=== PATIENT | female | born 1950 | race Caucasian/White ===

== ENCOUNTER 2018-02-27 17:48 | Emergency (ER) | payer MEDICARE, BC ==
[2011-01-12 06:33] VITALS: BMI 32.9
[2018-04-08 09:45] VITALS: BMI 35.2
== END 2018-02-27 18:46 | disposition home or self-care (01) ==
LOC: D.ER 17:48
DX: M62.838 Other muscle spasm (principal)

== ENCOUNTER 2018-03-13 11:12 | Inpatient (IN) | payer MEDICARE, BC ==
[~2018-03-13] VITALS: Ht 170.2 cm; Wt 100.6 kg
--- NOTE | ~2018-03-13 | EC ---
PATIENT:JACOB BARR DATE OF SERVICE: 03/13/18 SEX: F MEDICAL RECORD: [id number] DATE OF : 52 LOCATION:D.M2 D.212 AGE OF PATIENT: 67 ADMISSION DATE: 03/13/18 REFERRING PHYSICIAN: INTERPRETING PHYSICIAN: REAL SWAIN MD ECHOCARDIOGRAM REPORT ECHO CHARGES 4 ECHO COMPLETE Date: 03/13 CLINICAL DIAGNOSIS: AFIB ECHOCARDIOGRAPHIC MEASUREMENTS (adult normal given) AC root (d.<3.7cm) 3.9 cm LV Septum d (<1.2 cm> 1.2 cm Valve Excursion 2.1 cm LV Septum (systole) 1.3 cm Left Atria (s.<4.0cm> cm LVPW d(<1.2cm) 1.8 cm RV (d.<2.3cm) 3.9 cm LVPW (sytole) 1.9 cm LV diastole(<5.6CM) 5.9 cm MV E-F(>70mm/sec) cm LV systole 4.6 cm LVOT Diameter 1.6 cm MV exc.(>10mm) 1.5 cm Est.ejection fraction (50-75%) % DOPPLER: LVIT cm/sec A cm/sec E 109 cm/sec LA cm/sec RVSP 35 mmHg LVOT 88 cm/sec AOP1/2T m/s Asc. Ao 165 cm/sec RVOT 103 cm/sec RA cm/sec PA 147 cm/sec AV Gradient Peak 10.75mmHg AV Mean 5.50 mmHg AV Area cm MV Gradient Peak 4.97 mmHg MV Mean 1.44 mmHg MV Area cm COMMENTS: Neon Glass Blower: Krystina MAYERS Steerer: Joel Swain TAPE# PACS Pericardial Effusion N DATE OF SERVICE: 03/13/2018 FINDINGS: 1. Left ventricular chamber size is within normal limits. Left ventricular systolic function is normal. Overall ejection fraction estimated at 55%. 2. Left atrium is enlarged at 5.3 cm. Right atrium and right ventricular chamber sizes are as well moderately dilated. 3. Valvular structures have normal structure and motion. 4. Doppler interrogation reveals mild mitral regurgitation, mild tricuspid regurgitation. No other valvular insufficiency or stenosis. Pulmonary systolic ECHOCARDIOGRAM REPORT [id number] JACOB BARR pressure is estimated 35 mmHg. 5. No evidence of pericardial effusion or left ventricular thrombus. TRANSINT:[id number] Voice Confirmation ID: [id number] DOCUMENT ID: [id number] REAL SWAIN MD at 0956 CC: [id number] DICTATION DATE: 03/13/182144 BLUE CRABBER: 03/14/18 08 ADM IN [facility] [address] [place] [address]
--- NOTE | ~2018-03-13 | CN ---
PATIENT NAME:JACOB PINTO MEDICAL RECORD: [id number] : 52 LOCATION:D. D.2125 ADMIT DATE: 03/13/18 ACCOUNT: [id number] CONSULTING PHYSICIAN: REAL PENNINGTON MD REFERRING PHYSICIAN: ADE HENRIQUEZ DO DATE OF CONSULTATION: 03/13/2018 DIAGNOSES: 1. Atrial fibrillation with rapid ventricular response. 2. Anemia. 3. Renal insufficiency. HISTORY OF PRESENT ILLNESS: Mrs. Pinto has not had previous cardiac history, she felt her heart out of rhythm intermittently in the past few days. Today, it was more constant since she presented to Dr. Henriquez's office. She is found to be in atrial fibrillation with rapid ventricular response. She is on a diltiazem drip. Her heart rates in the 110-120 range at this time. She has a history of chronic renal insufficiency, this is not new. Her creatinine is 2.2. She does not have a history of anemia. Her hemoglobin is 9.0. She has no overt bleeding and no black tarry stools. PHYSICAL EXAMINATION: GENERAL APPEARANCE: Well-nourished, well-developed, appears stated age. Level of distress, comfortable. PSYCHIATRIC: Mental status, alert, normal affect. Orientation, oriented to time, place and person. EYES: Lids and conjunctiva, noninjected. No discharge, no pallor. ENT: Lips, teeth, gums, normal dentition. Oropharynx, no cyanosis, no pallor. NECK: Carotid arteries, bilateral normal upstroke, no bruits, no thrills. JUGULAR VEINS: No jugular venous pressure or distention. CERVICAL LYMPH NODES: Nontender, nonenlarged. THYROID: Not enlarged. Nontender. No nodules. LUNGS: Respiratory effort, unlabored. CHEST: Normal curvature. No thoracic deformity. No chest wall tenderness. Percussion, resonant. Auscultation, clear. No wheezes, no rales, no rhonchi. CARDIOVASCULAR: Irregularly irregular with atrial fibrillation. EXTREMITIES: No cyanosis, no edema. Peripheral pulses, full and equal in all extremities, except as noted. No bruits appreciated. ABDOMEN: Soft, nondistended. Normal aorta. No bruit. Nontender. No masses. Liver, nontender, no hepatomegaly. Spleen, nontender, no splenomegaly. MUSCULOSKELETAL: No joint tenderness. No joint swelling. No erythema. NEUROLOGICAL: Normal gait, normal strength, normal tone. SKIN: Warm and dry. OVERALL IMPRESSION: Atrial fibrillation, this has clearly been intermittent. She has been in atrial fibrillation now less than 72-hour sustained. We will give her 1 dose of Lovenox. At this point, start her on Eliquis as well as start her on sotalol. She is still in atrial fibrillation. Tomorrow, we will plan for DC cardioversion. We will get an echocardiogram as well as thyroid function studies. TRANSINT:[id number] Voice Confirmation ID: [id number] DOCUMENT ID: [id number] CONSULT REPORT [id number] JACOB PINTO, REAL MICHAELS at 0956 CC: [id number] DICTATION DATE: 03/13/18 1253 INSPECTOR OUTSIDE PRODUCTION: 03/13/18 1510 ADM IN [facility] [id number] [place] [address]
[2018-03-13 12:16] LABS: BASOPHILS 0.3 % (0-2); EOSINOPHILS 11.4 % (0-7); HEMATOCRIT 27.8 % (36.0-48.0); IMMATURE GRANULOCYTES 0.3 % (0-5); LYMPHOCYTES 23.7 % (15-50); MCH 29.9 pg (26.0-34.0); MCHC 32.4 g/dL (31.0-37.0); MCV 92.4 fL (80.0-100.0); MONOCYTES 4.7 % (2-11); NEUTROPHILS 59.6 % (40-80); RBC 3.01 10x6/uL (4.00-5.40); RDW 13.5 % (11.5-14.5); WBC 8.6 10x3/uL (4.8-10.8)
[2018-03-13 12:19] LABS: INR 1.13 (0.85-1.17); PROTIME 14.1 SECONDS (11.6-15.0)
[2018-03-13 12:20] LABS: PLATELET COUNT 361 10x3/uL (130-400)
[2018-03-13 12:21] LABS: APTT 31.6 SECONDS (22.8-39.4)
[2018-03-13 12:22] LABS: D-DIMER-QUANTITATIVE 1.04 ug/mLFEU (0.20-0.54)
[2018-03-13 12:29] LABS: ALBUMIN 3.3 g/dL (3.4-5.0); ALKALINE PHOSPHATASE 63 U/L (46-116); ALT (SGPT) 18 U/L (10-68); CALC OSMOLALITY 284 mosm/kg (275-300); CALCIUM 9.1 mg/dL (8.5-10.1); CARBON DIOXIDE 22.1 mmol/L (21.0-32.0); CHLORIDE - SERUM 106 mmol/L (98-107); CREATININE - SERUM 2.2 mg/dL (0.6-1.3); GLUCOSE 128 mg/dL (74-106); POTASSIUM - SERUM 4.1 mmol/L (3.5-5.1); SODIUM 138 mmol/L (136-145); UREA NITROGEN 31 mg/dL (7-18); eGFR NON AFRICAN AMERICAN 24 mL/min (90-120)
[2018-03-13 12:36] LABS: CKMB 0.7 U/L (0.0-3.6); CREATINE KINASE 59 UL (21-215); MAGNESIUM - SERUM 1.3 mg/dL (1.8-2.4); PRO BNP 1147 pg/mL (0-125); TROPONIN-I < 0.017 ng/mL (0.000-0.060)
[2018-03-13 13:33] LABS: T4 THYROXINE 7.7 ug/dL (4.7-13.3); THYROID STIMULATING HORMONE 0.75 uIU/mL (0.36-3.74)
[2018-03-13 15:33] VITALS: BP 124/72
[2018-03-13 15:51] VITALS: BP 124/72; BMI 35.5
[2018-03-13] MEDS ORDERED: CARDURA4 MG PO (17:11)
[2018-03-13] MEDS ORDERED: OMEPRAZOLE20 M1 PO (17:12)
[2018-03-13] MEDS ORDERED: PRINZIDE 10/12.1 TA1 PO (17:12)
[2018-03-13] MEDS ORDERED: LOPID600 MG PO (17:13)
[2018-03-13 20:00] VITALS: BP 113/58
[2018-03-14] VITALS: BP 96/50
[2018-03-14 04:00] VITALS: BP 103/48
[2018-03-14 05:02] LABS: BASOPHILS 0.6 % (0-2); EOSINOPHILS 11.8 % (0-7); HEMATOCRIT 26.5 % (36.0-48.0); HEMOGLOBIN 8.4 g/dL (12-16); IMMATURE GRANULOCYTES 0.2 % (0-5); LYMPHOCYTES 32.5 % (15-50); MCH 29.4 pg (26.0-34.0); MCHC 31.7 g/dL (31.0-37.0); MCV 92.7 fL (80.0-100.0); MEAN PLATELET VOLUME 12.2 fL (7.4-10.4); MONOCYTES 5.2 % (2-11); NEUTROPHILS 49.7 % (40-80); PLATELET COUNT 365 10x3/uL (130-400); RBC 2.86 10x6/uL (4.00-5.40); RDW 13.5 % (11.5-14.5); WBC 8.1 10x3/uL (4.8-10.8)
[2018-03-14 05:21] LABS: ALBUMIN 2.9 g/dL (3.4-5.0); ANION GAP 17.2 mmol/L (8-16); BILIRUBIN - TOTAL 0.1 mg/dL (0.2-1.3); CALCIUM 8.7 mg/dL (8.5-10.1); CREATININE - SERUM 2.4 mg/dL (0.6-1.3); POTASSIUM - SERUM 4.2 mmol/L (3.5-5.1); PROTEIN - SERUM 7.3 g/dL (6.4-8.2)
[2018-03-14 08:29] VITALS: BP 112/73
[2018-03-14 13:01] VITALS: BP 112/55
[2018-03-14 18:39] VITALS: BP 104/68
[2018-03-14 19:00] VITALS: BP 111/50
[2018-03-14 19:48] LABS: ERYTHROCYTE SEDIMENTATION RATE 72 mm/hr (0-30)
[2018-03-15 04:00] VITALS: BP 102/55
[2018-03-15 07:52] LABS: CREATININE - URINE 127.3 mg/dL (30-125); PRO/CRE RATIO URINE 1.1 mg/g; PROTEIN - URINE 143.6 mg/dL (0.0-11.9)
[2018-03-15 08:24] LABS: APPEARANCE CLEAR (CLEAR); BILIRUBIN NEGATIVE (NEGATIVE); COLOR YELLOW (YELLOW); GLUCOSE NEGATIVE (NEGATIVE); KETONE NEGATIVE (NEGATIVE); NITRITE NEGATIVE (NEGATIVE); PROTEIN 3+ mg/dL (NEGATIVE); SPECIFIC GRAVITY 1.015 (1.005-1.020); UROBILINOGEN NORMAL (NORMAL)
[2018-03-15 08:25] LABS: BACTERIA FEW /hpf (NONE SEEN); EPITHELIAL CELLS RARE /hpf (0-5); RED CELLS - URINE RARE /hpf (0-5); WHITE CELLS - URINE RARE /hpf (0-5)
[2018-03-15 08:36] VITALS: BP 113/67
[2018-03-15 11:52] VITALS: BP 123/52
[2018-03-15 13:57] LABS: ANION GAP 16.9 mmol/L (8-16); CALCIUM 8.6 mg/dL (8.5-10.1); CARBON DIOXIDE 23.3 mmol/L (21.0-32.0); CREATININE - SERUM 2.5 mg/dL (0.6-1.3); POTASSIUM - SERUM 4.2 mmol/L (3.5-5.1)
[2018-03-15 14:09] LABS: BASOPHILS 0.3 % (0-2); EOSINOPHILS 9.9 % (0-7); HEMATOCRIT 26.5 % (36.0-48.0); HEMOGLOBIN 8.3 g/dL (12-16); IMMATURE GRANULOCYTES 0.2 % (0-5); LYMPHOCYTES 21.7 % (15-50); MCH 29.5 pg (26.0-34.0); MCHC 31.3 g/dL (31.0-37.0); MCV 94.3 fL (80.0-100.0); MEAN PLATELET VOLUME 12.3 fL (7.4-10.4); MONOCYTES 4.7 % (2-11); NEUTROPHILS 63.2 % (40-80); PLATELET COUNT 341 10x3/uL (130-400); RBC 2.81 10x6/uL (4.00-5.40); RDW 13.3 % (11.5-14.5); WBC 9.2 10x3/uL (4.8-10.8)
[2018-03-15 15:40] VITALS: BP 125/63
[2018-03-15 20:00] VITALS: BP 118/70
[2018-03-16] VITALS: BP 120/56
[2018-03-16 05:50] VITALS: BP 114/45
[2018-03-16 08:16] VITALS: BP 125/58
[2018-03-16 08:21] LABS: BASOPHILS 0.5 % (0-2); EOSINOPHILS 8.4 % (0-7); HEMATOCRIT 26.2 % (36.0-48.0); HEMOGLOBIN 8.2 g/dL (12-16); IMMATURE GRANULOCYTES 0.1 % (0-5); LYMPHOCYTES 25.3 % (15-50); MCH 29.6 pg (26.0-34.0); MCHC 31.3 g/dL (31.0-37.0); MCV 94.6 fL (80.0-100.0); MEAN PLATELET VOLUME 12.9 fL (7.4-10.4); MONOCYTES 5.6 % (2-11); NEUTROPHILS 60.1 % (40-80); PLATELET COUNT 333 10x3/uL (130-400); RBC 2.77 10x6/uL (4.00-5.40); RDW 13.5 % (11.5-14.5); WBC 9.2 10x3/uL (4.8-10.8)
[2018-03-16 11:23] VITALS: BP 148/58
[2018-03-16 14:24] LABS: UPE RAND - ALBUMIN 79.4 % (()); UPE RAND - ALPHA 1 GLOBULIN 2.5 % (()); UPE RAND - ALPHA 2 GLOBULIN 4.2 % (()); UPE RAND - BETA GLOBULIN 7.8 % (())
[2018-03-16 15:20] VITALS: BP 139/48
[2018-03-16 19:00] VITALS: BP 139/59
[2018-03-16 21:07] VITALS: Ht 170.2 cm; Wt 100.6 kg
[2018-03-17] VITALS (7 sets, daily range): BP systolic 110–140; BP diastolic 46–66
[2018-03-17 07:01] LABS: % SATURATION 6 % (15-55); IRON 25 ug/dl (35-150); TOTAL IRON BIND CAPACITY 371 ug/dl (260-445); UNSAT IRON BIND CAPACITY 346 ug/dl (150-375)
[2018-03-17 07:52] LABS: ANION GAP 18.5 mmol/L (8-16); CALCIUM 8.6 mg/dL (8.5-10.1); CARBON DIOXIDE 20.9 mmol/L (21.0-32.0); CREATININE - SERUM 2.1 mg/dL (0.6-1.3); POTASSIUM - SERUM 4.4 mmol/L (3.5-5.1)
[2018-03-17 11:42] LABS: BASOPHILS 0.3 % (0-2); EOSINOPHILS 9.1 % (0-7); HEMOGLOBIN 8.2 g/dL (12-16); IMMATURE GRANULOCYTES 0.2 % (0-5); LYMPHOCYTES 22.6 % (15-50); MCH 29.5 pg (26.0-34.0); MCHC 31.5 g/dL (31.0-37.0); MCV 93.5 fL (80.0-100.0); MEAN PLATELET VOLUME 13.3 fL (7.4-10.4); NEUTROPHILS 61.8 % (40-80); PLATELET COUNT 314 10x3/uL (130-400); RBC 2.78 10x6/uL (4.00-5.40); RDW 13.7 % (11.5-14.5); WBC 9.2 10x3/uL (4.8-10.8)
[2018-03-18] VITALS (7 sets, daily range): BP systolic 108–124; BP diastolic 46–81
[2018-03-18 05:28] LABS: ANION GAP 18.7 mmol/L (8-16); CALCIUM 8.7 mg/dL (8.5-10.1); CARBON DIOXIDE 21.3 mmol/L (21.0-32.0); CREATININE - SERUM 2.2 mg/dL (0.6-1.3)
[2018-03-18 07:23] LABS: BASOPHILS 0.4 % (0-2); EOSINOPHILS 7.7 % (0-7); HEMATOCRIT 30.5 % (36.0-48.0); IMMATURE GRANULOCYTES 0.2 % (0-5); LYMPHOCYTES 20.2 % (15-50); MCH 29.4 pg (26.0-34.0); MCHC 32.8 g/dL (31.0-37.0); MCV 89.7 fL (80.0-100.0); MEAN PLATELET VOLUME 13.5 fL (7.4-10.4); MONOCYTES 5.5 % (2-11); PLATELET COUNT 287 10x3/uL (130-400); RDW 14.8 % (11.5-14.5)
[2018-03-19 03:34] LABS: ANION GAP 16.2 mmol/L (8-16); CALCIUM 8.6 mg/dL (8.5-10.1); CARBON DIOXIDE 21.8 mmol/L (21.0-32.0); CREATININE - SERUM 2.1 mg/dL (0.6-1.3)
[2018-03-19 04:00] VITALS: BP 123/53
[2018-03-19 09:42] VITALS: BP 137/54
[2018-03-19 12:39] VITALS: BP 133/66
[2018-03-19] MEDS ORDERED: ELIQUIS5 MG PO (14:40)
[2018-03-19] MEDS ORDERED: BETAPACE 120 M120 MG PO (14:40)
[2018-03-19 16:41] VITALS: BP 132/66
[2018-03-19 19:00] VITALS: BP 136/60
[2018-03-20 04:00] VITALS: BP 128/62
[2018-03-20 05:16] LABS: ANION GAP 15.4 mmol/L (8-16); CALCIUM 8.9 mg/dL (8.5-10.1); CARBON DIOXIDE 24.4 mmol/L (21.0-32.0); CREATININE - SERUM 2.1 mg/dL (0.6-1.3); POTASSIUM - SERUM 3.8 mmol/L (3.5-5.1)
[2018-03-20 08:35] VITALS: BP 154/70
[2018-03-20 11:35] VITALS: BP 158/57
[2018-03-20] MEDS ORDERED: BETAPACE 80 MG80 MG PO (13:44)
== END 2018-03-20 15:54 | disposition home health service (06) | DRG 308 ==
LOC: D.ER 11:12 → D.EDHOLD 13:55 → D.M2 13:55
PROVIDERS: Family Medicine; Internal Medicine Hematology & Oncology; Internal Medicine Interventional Cardiology; Internal Medicine Nephrology
DX: I48.91 Unspecified atrial fibrillation (principal); N17.0 Acute kidney failure with tubular necrosis; D50.9 Iron deficiency anemia, unspecified; I12.9 Hypertensive chronic kidney disease with stage 1 through stage 4 chronic kidney disease, or unspecified chronic kidney disease; N18.3 Chronic kidney disease, stage 3 (moderate); E78.5 Hyperlipidemia, unspecified; I25.10 Atherosclerotic heart disease of native coronary artery without angina pectoris; Z87.891 Personal history of nicotine dependence; R00.1 Bradycardia, unspecified

== ENCOUNTER 2018-04-08 00:38 | Observation (INO) | payer MEDICARE, BC ==
[~2018-04-08] VITALS: Ht 170.2 cm; Wt 101.9 kg
--- NOTE | ~2018-04-08 | HEMODYNAMI ---
PATIENT:JACOB BARR MEDICAL RECORD: [id number] : 52 [facility] ADMISSION DATE: 04/08/18 Generatedon:04/09/20188:49 Patient name: JACOB BARR Patient #: [id number] SSN: : 1 12/17/1949 Date of study: 04/09/2018 Page: Of Hemodynamic Procedure Report Patient Data Patient Demographics Procedure consent was obtained First Name: JACOB Gender: Female Last Name: MOMO : 1950 [facility] Initial: CRAIG Age: 67 year(s) Patient #: [id number] Race: Unknown Additional ID: [id number] Contact details [address]: [address] [place] [address] State: [place] City: [place] Zip code: [address] Past Medical History Allergies Allergen Reaction Date Comments Reported Morphine 04/09/2018 Penicillins 04/09/2018 Demerol 04/09/2018 Other allergy 04/09/2018 flexeril Admission Admission Data Admission Date: 04/08/2018 Admission Time: 2:52 Room #: D.2109 Lab Results Lab Result Date: 04/09/2018 Lab Result Time: 0:00 Biochemistry Name Units Result Min Max BUN mg/dl 38 --(----)-* 7 18 Creatinine mg/dl 1.8 --(----)-* 0.6 1.3 CBC Name Units Result Min Max Hemoglobin g/dl 10.6 *-(----)-- 13.5 17.5 Procedure Procedure Types Cath Procedure Diagnostic Procedure LHC LHC w/Coronaries Sedation Charges Moderate Sedation up to 15 minutes Procedure Description Procedure Date Procedure Date: 04/09/2018 Procedure Start Time: 8:33 Procedure End Time: 8:45 Procedure Staff Name Function Roshan Coats MD Performing Physician Karma Betancourt RT Monitor Qing Bustamante RT Scrub Shahid Mcdaniel RN Nurse Procedure Data Cath Procedure Fluoroscopy Diagnostic fluoroscopy Total fluoroscopy Time: 1.4 time: 1.4 min min Diagnostic fluoroscopy Total fluoroscopy dose: 513 dose: 513 mGy mGy Contrast Material Contrast Material Type Amount (ml) Isovue 300 48 Entry Location Entry Primary Successful Side Size Upsize Upsize Entry Closure Obrien ccessful Closure Location (Fr) 1 (Fr) 2 (Fr) Remarks Device Remarks Radial Right 6 Fr Mechanical artery Short Compression Estimated blood loss: 5 ml Procedure Complications No complications Procedure Medications Medication Administration Route Dosage Oxygen NC 2 l/min Lidocaine 2% added to field 20 Heparin Flush Bag added to field 2 bags (1000units/500ml NS) 0.9% NaCl I.V. 100 ml/hr Versed I.V. 1 mg Fentanyl I.V. 50 mcg Versed I.V. 1 mg Fentanyl I.V. 50 mcg Radial Cocktail I.A. 1 syringe (Verapomil 2mg/Nitro 400mcg/Heparin 1500units) Versed I.V. 1 mg Hemodynamics Rest Heart Rate: 67 (bpm) Pressure Samples Time Site Value (mmHg) Purpose Heart Use Rate(bpm) 8:37 LV 125/-7,12 Snapshot 73 8:37 LV 72/1,12 Snapshot 72 8:38 AO 106/61(79) Pullback 76 8:38 LV 126/-4,15 Pullback 76 Gradients Valve Time Site 1 Site 2 Mean SEP/DFP Peak To Heart Use (mmHg) (sec/min) Peak Rate (mmHg) (bpm) Aortic 8:38 LV AO 15 23 20 76 126/-4,15 106/61(79) Calculations Valve P-P Mean Valve Index Valve Source Name Gradient Area Flow (cm2) Aortic 20 15 20 15 Snapshots Pre Cath Intra NCS Post Cath Vital Signs Time Heart Resp SPO2 etCO2 NIBP (mmHg) Rhythm Pain Sedation Rate (ipm) (%) (mmHg) Status Level (bpm) 8:24:24 65 19 94 21.7 129/70(108) NSR 0 (11) 10(A) , No pain 8:28:07 64 16 96 11.9 110/80(101) NSR 0 (11) 10(A) , No pain 8:32:17 60 13 95 20 124/76(106) NSR 0 (11) 10(A) , No pain 8:36:33 64 16 94 2.9 133/73(102) NSR 0 (11) 10(A) , No pain 8:40:47 68 15 93 29.2 125/68(106) NSR 0 (11) 10(A) , No pain 8:45:05 67 14 94 26.9 121/70(83) NSR 0 (11) 10(A) , No pain Medications Time Medication Route Dose Verified Delivered Reason Notes E ffectiveness by by 8:23:01 Oxygen NC 2 l/min Roshan Buffie used for Jorge L Mcdaniel RN procedure 8:23:08 Lidocaine 2% added 20ml Roshan Roshan for local to vial Jorge L Coats MD anesthetic field 8:23:14 Heparin Flush added 2 bags Roshan Roshan used for Bag to Jorge L Coats MD procedure (1000units/500ml field NS) 8:23:24 0.9% NaCl I.V. 100 Roshan Buffie Per ml/hr Jorge L Mcdaniel RN physician 8:25:01 Versed I.V. 1 mg Roshan Buffie for sedation Jorge L Mcdaniel RN 8:25:06 Fentanyl I.V. 50 mcg Roshan Buffie for sedation Jorge L Mcdaniel RN 8:31:45 Versed I.V. 1 mg Roshan Buffie for sedation Jorge L Mcdaniel RN 8:31:49 Fentanyl I.V. 50 mcg Roshan Buffie for sedation Jorge L Mcdaniel RN 8:37:21 Radial Cocktail I.A. 1 Roshan Roshan for (Verapomil syringe Jorge L Coats MD vasodilation 2mg/Nitro 400mcg/Heparin 1500units) 8:37:24 Versed I.V. 1 mg Roshan Buffie for sedation Jorge L Mcdaniel RN Procedure Log Time Note 7:44:02 Diagnostic Cath Status : Elective 7:44:33 Karma Betancourt RT(R) sent for patient. Start room use. 7:44:35 Time tracking: Regular hours (M-F 7:00 - 5:00) 7:44:39 Plan of Care:Hemodynamics will remain stable., Cardiac rhythm will remain stable., Comfort level will be maintained., Respiratory function will remain adequate., Patient/ family verbilizes understanding of procedure., Procedure tolerated without complication., Recovers from procedure without complications.. 8:08:14 Patient received from PCU to [facility] 2 Alert and oriented. Tansferred to table in Supine position. 8:08:15 Warm blankets applied, and maria teresa hugger turned on for patient comfort. 8:08:15 Correct patient and procedure confirmed by team. 8:08:16 Signed procedure consent form obtained from patient. 8:08:17 ECG and BP/O2 sat monitors applied to patient. 8:08:18 Full Disclosure recording started 8:08:42 IV left forearm D/C'd due to infiltration. 8:09:07 Rhythm: sinus rhythm 8:09:24 H&P Date Dictated: 04/08/2018 Within 30 days and on chart.. 8:09:25 Pre-procedure instructions explained to patient. 8:09:25 Pre-op teaching completed and patient verbalized understanding. 8:09:26 Family in patients room. 8:09:28 Patient NPO since Midnight. 8:10:23 Patient allergic to Morphine 8:10:30 Patient allergic to Penicillins 8:10:35 Patient allergic to Demerol 8:10:47 Patient allergic to Other allergyflexeril 8:10:53 Is the patient allergic to Iodine/contrast media? No. 8:10:56 Is patient on blood thinner?Yes 8:11:00 ACC The patient was administered the following blood thiners within the last 24 hours: Eliquis 8:11:06 Previous problem with sedation/anesthesia? No ? 8:11:08 Snore? Yes 8:11:09 Sleep apnea? Yes 8:11:10 Deviated septum? No 8:11:11 Opens mouth fully? Yes 8:11:13 Sticks out tongue? No 8:11:15 Airway obstruction? No ? 8:11:17 Dentures? No ? 8:11:22 Patient diabetic? Yes. 8:11:24 If diabetic: On Metformin? No 8:11:27 Pre procedure: right dorsailis pedis pulse 2+ Normal; easily identifiable; not easily obliterated 8:11:30 Modified Behzad's test Ulnar < 7 seconds 8:11:31 Patient pain scale 0/10 ?. 8:11:49 IV started by Shahid Mcdaniel RN inleft forearm with a 22 gauge IV catheter with 0.9% NaCl at KVO. 8:11:57 Lab results completed and on chart. 8:12:00 Right Radial & Right Groin area was prepped with chlora-prep and draped in sterile fashion 8:12:02 Alarms reviewed by Annabel N. 8:12:02 Sharps counted by scrub and verified by R.N. 8:12:16 Use device set Radial Dx or PCI 8:12:17 ACIST Syringe (09796) opened to sterile field. 8:12:18 Medline Cath Pack ([id number]) opened to sterile field. 8:12:18 Bag Decanter (2002S) opened to sterile field. 8:12:19 DIAGNOSTIC WIRE .035 260cm J wire (759453) opened to sterile field. 8:12:20 ACIST Hand Control (07050) opened to sterile field. 8:12:20 ACIST Manifold (26038) opened to sterile field. 8:12:23 MBrace Wrist Support ([id number]) opened to sterile field. 8:12:28 SHEATH 6Fr Prelude Radial ([id number]) opened to sterile field. 8:17:07 Lab Result : BUN 38 mg/dl 8:17:07 Lab Result : Creatinine 1.8 mg/dl 8:17:07 Lab Result : Hemoglobin 10.6 g/dl 8:18:07 Physician arrived 8:18:07 --------ALL STOP TIME OUT------ 8:18:08 Final Timeout: patient, procedure, and site verified with staff and physician. All members of the team are in agreement. 8:18:10 Right Radial & Right Groin site verified by team. 8:18:14 Physical assessment completed. ASA score P 2 - A patient with mild systemic disease as per Roshan Coats MD. 8:18:17 Sedation plan: IV Moderate Sedation Medication:Versed, Fentanyl 8:23:01 Oxygen 2 l/min NC was administered by Shahid Mcdaniel RN; used for procedure; 8:23:08 Lidocaine 2% 20ml vial added to field was administered by Roshan Coats MD; for local anesthetic; 8:23:14 Heparin Flush Bag (1000units/500ml NS) 2 bags added to field was administered by Roshan Coats MD; used for procedure; 8:23:24 0.9% NaCl 100 ml/hr I.V. was administered by Shahid Mcdaniel RN; Per physician; 8:23:27 Vital chart was started 8:25:01 Versed 1 mg I.V. was administered by Shahid Mcdaniel RN; for sedation; 8:25:06 Fentanyl 50 mcg I.V. was administered by Shahid Mcdaniel RN; for sedation; 8:31:41 Procedure started. 8:31:45 Versed 1 mg I.V. was administered by Shahid Mcdaniel RN; for sedation; 8:31:49 Fentanyl 50 mcg I.V. was administered by Shahid Mcdaniel RN; for sedation; 8:33:05 Local anesthetic to right radial artery with Lidocaine 2% by Roshan Coats MD.INITIAL ACCESS ONLY 8:36:42 A 6 Fr Short sheath was inserted into the Right Radial artery 8:37:12 Baseline sample Acquired. 8:37:21 Radial Cocktail (Verapomil 2mg/Nitro 400mcg/Heparin 1500units) 1 syringe I.A. was administered by Roshan Coats MD; for vasodilation; 8:37:24 Versed 1 mg I.V. was administered by Shahid Mcdaniel RN; for sedation; 8:38:21 LV hemodynamics recorded. 8:38:22 LV gram done using HAWKINS 8:38:25 Injector settings: Ml/sec: 5, Volume: 15, 8:38:32 EF : 60 % 8:38:46 LCA angiography performed. 8:40:47 RCA angiography performed. 8:41:28 Injector settings: Ml/sec: 3, Volume: 6, 8:43:37 Catheter removed. 8:43:48 TR BAND Standard ([id number]) opened to sterile field. 8:43:59 Sheath removed intact; hemostasis achieved with Mechanical Compression to the Right Radial artery. 8:44:01 Procedure ended.(Physican Out) 8:44:11 Fluoroscopy time 01.40 minutes. 8:44:15 Fluoroscopy dose: 513 mGy 8:44:15 Flurop Dose total: 513 8:44:18 Contrast amount:Isovue 300 48ml. 8:44:20 Sharps counted by scrub and verified by R.N. 8:44:23 TR band inflated with 10cc of air. 8:44:31 Post right radial artery:stable 8:44:32 Post Procedure Pulses reassessed and unchanged 8:44:35 Post procedure rhythm: unchanged. 8:44:38 Estimated blood loss: 5 ml 8:44:39 Post procedure instruction explained to patient.Patient verbalizes understanding. 8:44:40 Patient needs reinforcement of post procedure teaching. 8:44:55 Procedure type changed to Cath procedure, Diagnostic procedure, LHC, LHC w/Coronaries, Sedation Charges, Moderate Sedation up to 15 minutes 8:44:56 Procedure and supply charges have been captured, reviewed, submitted and are correct. 8:45:00 Procedure Complication : No complications 8:45:08 Vital chart was stopped 8:45:09 See physician's report for complete and final results. 8:45:14 Report given to [facility]. 8:45:17 Patient transfered to [facility] with Stretcher. 8:45:20 Procedure ended. 8:45:20 Full Disclosure recording stopped 8:46:53 End room use (Document Last) Device Usage Item Name Manufacture Quantity Catalog Number Hospital Part Current M inimal Lot# / Charge Number Stock Stock Serial# Code ACIST Syringe Acist 1 34713 [id number] 271392 [id number] 2 0 (40718) [employer] Medline Cath Cardinal 1 [id number] [id number] 19042 326137 5 [facility] Jusp ([id number]) Bag Decanter Microtek 1 2001S 011531 97277 680486 5 (2001S) Medical Inc. DIAGNOSTIC WIRE St Azael 1 920354 169783 636699 461391 3 0 .035 260cm J wire (244180) ACIST Hand Acist 1 57653 221515 705053 164644 5 Control (10952) [employer] ACIST Manifold Acist 1 91780 926586 280643 110725 5 (05235) [employer] MBrace Wrist Advanced 1 [id number] 394743 54447 464187 5 Support Vascular ([id number]) Dynamics SHEATH 6Fr Merit 1 [id number] 955823 276244 975554 5 Prelude Radial Medical ([id number]) TR BAND Terumo 1 [id number] 826985 888513 649929 4 0 Standard ([id number]) Signature Audit Tripp Stage Time Signature Unsigned Intra-Procedure 04/09/2018 Qing Robby 8:49:14 AM RT(R) Signatures Monitor : Karma Betancourt Signature : RT Date : Time : [facility] [address] [place] [address]
[~2018-04-08 00:38] MED LIST: BETAPACE 120 M120 MG PO; BETAPACE 80 MG80 MG PO; CARDURA4 MG PO; ELIQUIS5 MG PO; LOPID600 MG PO; OMEPRAZOLE20 M1 PO; PRINZIDE 10/12.1 TA1 PO
[2018-04-08 01:25] LABS: BASOPHILS 0.5 % (0-2); EOSINOPHILS 10.2 % (0-7); HEMATOCRIT 32.1 % (36.0-48.0); HEMOGLOBIN 10.2 g/dL (12-16); IMMATURE GRANULOCYTES 0.2 % (0-5); LYMPHOCYTES 32.7 % (15-50); MCH 29.2 pg (26.0-34.0); MCHC 31.8 g/dL (31.0-37.0); MEAN PLATELET VOLUME 12.3 fL (7.4-10.4); NEUTROPHILS 50.4 % (40-80); PLATELET COUNT 263 10x3/uL (130-400); RBC 3.49 10x6/uL (4.00-5.40); WBC 9.3 10x3/uL (4.8-10.8)
[2018-04-08 01:36] LABS: ALBUMIN 3.2 g/dL (3.4-5.0); ALKALINE PHOSPHATASE 42 U/L (46-116); ALT (SGPT) 14 U/L (10-68); BILIRUBIN - TOTAL 0.18 mg/dL (0.2-1.3); CALC OSMOLALITY 283 mosm/kg (275-300); CALCIUM 8.6 mg/dL (8.5-10.1); CARBON DIOXIDE 22.1 mmol/L (21.0-32.0); CHLORIDE - SERUM 103 mmol/L (98-107); GLUCOSE 126 mg/dL (74-106); POTASSIUM - SERUM 4.1 mmol/L (3.5-5.1); PROTEIN - SERUM 7.5 g/dL (6.4-8.2); SODIUM 137 mmol/L (136-145); UREA NITROGEN 34 mg/dL (7-18); eGFR NON AFRICAN AMERICAN 26 mL/min (90-120)
[2018-04-08 01:48] LABS: CHOL - HDL RATIO 6.9 ratio (2.3-4.1); CHOLESTEROL, TOTAL 173 mg/dL (0-200); CKMB 0.1 U/L (0.0-3.6); CREATINE KINASE 46 UL (21-215); HDL CHOLESTEROL 25 mg/dL (32-96); LDL CHOLESTEROL 109 mg/dL (0-100); LDL-HDL RATIO 4.4 ratio (1.5-3.5); TRIGLYCERIDE 198 mg/dL (30-200); TROPONIN-I < 0.017 ng/mL (0.000-0.060)
[2018-04-08 03:24] LABS: CREATINE KINASE 44 UL (21-215)
[2018-04-08 03:26] LABS: TROPONIN-I < 0.017 ng/mL (0.000-0.060)
[2018-04-08 04:09] VITALS: BP 118/50; BMI 35.2
[2018-04-08] MEDS ORDERED: PEPCID AC20 MG PO (04:19)
[2018-04-08 06:17] VITALS: BP 118/503
[2018-04-08 08:18] VITALS: BP 169/61
[2018-04-08 09:29] LABS: BASOPHILS 0.7 % (0-2); EOSINOPHILS 10.9 % (0-7); HEMATOCRIT 31.9 % (36.0-48.0); IMMATURE GRANULOCYTES 0.3 % (0-5); LYMPHOCYTES 26.3 % (15-50); MCH 29.2 pg (26.0-34.0); MCHC 31.3 g/dL (31.0-37.0); MEAN PLATELET VOLUME 12.6 fL (7.4-10.4); MONOCYTES 3.8 % (2-11); PLATELET COUNT 232 10x3/uL (130-400); RBC 3.43 10x6/uL (4.00-5.40); WBC 7.2 10x3/uL (4.8-10.8)
[2018-04-08 09:45] VITALS: Ht 170.2 cm; Wt 101.9 kg
[2018-04-08 10:01] LABS: CALC OSMOLALITY 295 mosm/kg (275-300); CHLORIDE - SERUM 106 mmol/L (98-107); CKMB 0.5 U/L (0.0-3.6); CREATINE KINASE 45 UL (21-215); CREATININE - SERUM 2.1 mg/dL (0.6-1.3); POTASSIUM - SERUM 4.1 mmol/L (3.5-5.1); SODIUM 142 mmol/L (136-145); TROPONIN-I < 0.017 ng/mL (0.000-0.060); UREA NITROGEN 36 mg/dL (7-18); eGFR NON AFRICAN AMERICAN 25 mL/min (90-120)
[2018-04-08 10:02] LABS: GLUCOSE 188 mg/dL (74-106)
[2018-04-08 12:28] VITALS: BP 112/64
[2018-04-08 15:28] LABS: CREATINE KINASE 41 UL (21-215)
[2018-04-08 15:39] LABS: TROPONIN-I < 0.017 ng/mL (0.000-0.060)
[2018-04-08 16:30] VITALS: BP 112/58
[2018-04-08 21:01] VITALS: BP 145/70
[2018-04-09 00:58] VITALS: BP 111/49
[2018-04-09 03:55] LABS: BASOPHILS 0.4 % (0-2); EOSINOPHILS 12.8 % (0-7); HEMATOCRIT 32.1 % (36.0-48.0); HEMOGLOBIN 10.6 g/dL (12-16); IMMATURE GRANULOCYTES 0.1 % (0-5); LYMPHOCYTES 34.7 % (15-50); MCH 29.6 pg (26.0-34.0); MEAN PLATELET VOLUME 12.4 fL (7.4-10.4); MONOCYTES 5.8 % (2-11); NEUTROPHILS 46.2 % (40-80); PLATELET COUNT 236 10x3/uL (130-400); RBC 3.58 10x6/uL (4.00-5.40); RDW 14.7 % (11.5-14.5); WBC 7.2 10x3/uL (4.8-10.8)
[2018-04-09 04:03] LABS: MCV 89.7 fL (80.0-100.0)
[2018-04-09 04:37] LABS: ALBUMIN 2.9 g/dL (3.4-5.0); ANION GAP 18.9 mmol/L (8-16); BILIRUBIN - TOTAL 0.26 mg/dL (0.2-1.3); CALCIUM 8.7 mg/dL (8.5-10.1); CARBON DIOXIDE 23.2 mmol/L (21.0-32.0); CREATININE - SERUM 1.8 mg/dL (0.6-1.3); POTASSIUM - SERUM 4.1 mmol/L (3.5-5.1); PROTEIN - SERUM 6.8 g/dL (6.4-8.2)
[2018-04-09 06:33] VITALS: BP 121/61
[2018-04-09 12:46] VITALS: BP 120/66
[2018-04-09 16:43] VITALS: BP 125/64
[2018-04-09 20:00] VITALS: BP 141/68
[2018-04-10] VITALS: BP 112/56; BP 133/53
[2018-04-10 05:06] LABS: BASOPHILS 0.6 % (0-2); EOSINOPHILS 11.2 % (0-7); HEMATOCRIT 32.4 % (36.0-48.0); HEMOGLOBIN 10.4 g/dL (12-16); IMMATURE GRANULOCYTES 0.2 % (0-5); LYMPHOCYTES 33.7 % (15-50); MCHC 32.1 g/dL (31.0-37.0); MCV 90.3 fL (80.0-100.0); MEAN PLATELET VOLUME 12.7 fL (7.4-10.4); MONOCYTES 5.3 % (2-11); PLATELET COUNT 238 10x3/uL (130-400); RBC 3.59 10x6/uL (4.00-5.40); RDW 14.5 % (11.5-14.5); WBC 6.6 10x3/uL (4.8-10.8)
[2018-04-10 05:26] LABS: ALBUMIN 2.9 g/dL (3.4-5.0); ANION GAP 16.9 mmol/L (8-16); BILIRUBIN - TOTAL 0.25 mg/dL (0.2-1.3); CALCIUM 8.7 mg/dL (8.5-10.1); CARBON DIOXIDE 24.9 mmol/L (21.0-32.0); CREATININE - SERUM 1.8 mg/dL (0.6-1.3); POTASSIUM - SERUM 3.8 mmol/L (3.5-5.1); PROTEIN - SERUM 6.7 g/dL (6.4-8.2)
[2018-04-10 08:33] VITALS: BP 130/61
== END 2018-04-10 10:40 | disposition home or self-care (01) ==
LOC: D.ER 00:38 → D.M2 02:52 → D.EDHOLD 02:52 → OBSVTIME 02:52 → D.M2 03:09
PROVIDERS: Family Medicine; Internal Medicine Cardiovascular Disease
DX: I25.119 Atherosclerotic heart disease of native coronary artery with unspecified angina pectoris (principal); I48.2 Chronic atrial fibrillation; E78.5 Hyperlipidemia, unspecified; K21.9 Gastro-esophageal reflux disease without esophagitis; E11.22 Type 2 diabetes mellitus with diabetic chronic kidney disease; I12.9 Hypertensive chronic kidney disease with stage 1 through stage 4 chronic kidney disease, or unspecified chronic kidney disease; N18.3 Chronic kidney disease, stage 3 (moderate); D64.9 Anemia, unspecified; Q24.5 Malformation of coronary vessels